=== PATIENT | male | born 1990 | race Two or more races ===

== ENCOUNTER 2021-09-29 12:42 | Emergency (ER) | payer OTHER ==
[~2021-09-29] VITALS: Ht 185.4 cm; Wt 72.6 kg
== END 2021-09-29 15:01 | disposition home or self-care (01) ==
LOC: ER 12:42
DX: S62.602A Fracture of unspecified phalanx of right middle finger, initial encounter for closed fracture (principal); W50.0XXA Accidental hit or strike by another person, initial encounter; Y92.89 Other specified places as the place of occurrence of the external cause